=== PATIENT | male | born 1965 | race Asian ===

== ENCOUNTER 2024-08-22 06:18 | Day surgery (SDC) | payer BC ==
[2024-08-22] MEDS ORDERED: PROPOFOL 200 MG/20 ML BOTTLE ONE (07:20)
[2024-08-22 09:20] VITALS: TEMP 97.5
== END 2024-08-22 10:24 | disposition home or self-care (01) ==
LOC: DS 06:18
PROVIDERS: ATTEND Surgery
DX: Z12.11 Encounter for screening for malignant neoplasm of colon (principal); D12.5 Benign neoplasm of sigmoid colon; K57.30 Diverticulosis of large intestine without perforation or abscess without bleeding; I10 Essential (primary) hypertension; E78.5 Hyperlipidemia, unspecified; E66.9 Obesity, unspecified; K21.9 Gastro-esophageal reflux disease without esophagitis; Z79.899 Other long term (current) drug therapy; Z98.890 Other specified postprocedural states
CPT/HCPCS: 45380; 88305; J3490; J7120; A4663